=== PATIENT | female | born 1980 | race Caucasian/White ===

== ENCOUNTER → 2016-04-25 | Outpatient (CLI) | payer OTHER ==
[~2016-04-25] MED LIST: LIDOCAINE 1% 30 ML SDV ONE; NA BICARBONATE 50 MEQ/50 ML VIAL ONE
[2016-04-25 11:46] LABS: PROTEIN, CSF 27 mg/dL (12-60)
[2016-04-25 11:50] LABS: CSF APPEARANCE CLEAR (CLEAR); CSF COLOR COLORLESS (COLORLESS); WBC, CSF 0 /mm3 (0-5)
[2016-04-27 07:57] LABS: CSF IGG INDEX 0.46 (<=0.85); IGG CSF 2.2 mg/dL (<=8.1); IGG/ALBUMIN CSF 0.12 (<=0.21); IGG/ALBUMIN SERUM 0.26 (<=0.40)
== END ==
LOC: FIMAGING 08:07
PROVIDERS: ATTEND Psychiatry & Neurology Neurology
PROC: 009U3ZX Drainage of Spinal Canal, Percutaneous Approach, Diagnostic (ICD-10-PCS; principal; 2016-04-25)
DX: G37.9 Demyelinating disease of central nervous system, unspecified (principal)
CPT/HCPCS: 82784-90; 83916-90

== ENCOUNTER → 2016-04-30 | Outpatient (CLI) | payer OTHER ==
[~2016-04-30] MED LIST changes: +GADOBUTROL 10 ML VIAL IVP ONE; -LIDOCAINE 1% 30 ML SDV ONE; -NA BICARBONATE 50 MEQ/50 ML VIAL ONE
== END ==
LOC: FIMAGING 08:06
PROVIDERS: ATTEND Psychiatry & Neurology Neurology
DX: R53.83 Other fatigue (principal); R93.0 Abnormal findings on diagnostic imaging of skull and head, not elsewhere classified; M50.30 Other cervical disc degeneration, unspecified cervical region; M48.02 Spinal stenosis, cervical region
CPT/HCPCS: A9585

== ENCOUNTER → 2016-07-25 | Outpatient (CLI) | payer OTHER | LOC: CIMAGING 07:18 | PROVIDERS: ATTEND Internal Medicine Gastroenterology | DX: R10.11 Right upper quadrant pain (principal); K58.9 Irritable bowel syndrome, unspecified | CPT/HCPCS: 76705-PO ==

== ENCOUNTER → 2016-09-25 | Outpatient (CLI) | payer OTHER | LOC: FIMAGING 18:44 | PROVIDERS: ATTEND Psychiatry & Neurology Neurology | DX: G37.9 Demyelinating disease of central nervous system, unspecified (principal); R26.1 Paralytic gait; R42 Dizziness and giddiness; R25.1 Tremor, unspecified; R20.9 Unspecified disturbances of skin sensation ==